=== PATIENT | male | born 1955 | race Caucasian/White ===

== ENCOUNTER 2018-10-06 08:09 | Day surgery (SDC) | payer BC, OTHER ==
[~2018-10-06] VITALS: Ht 198.1 cm; Wt 97.7 kg
[~2018-10-06 08:09] MED LIST: MAGN400T7 PO
[2018-10-06 08:57] VITALS: BP 119/82
[2018-10-06] MEDS ORDERED: CHLORHEXIDINE 15 ML UDC ONE (09:23)
[2018-10-06] MEDS ORDERED: CIPROFLOXACIN/PMX 400MG/200ML 200 ML ONE (09:28)
[2018-10-06] MEDS ORDERED: ONDANSETRON 2MG/ML, 2ML IV PRN (09:30)
[2018-10-06] MEDS ORDERED: hydrALAzine 20 MG/ML, 1ML IV PRN (09:30)
[2018-10-06] MEDS ORDERED: METOPROLOL 1 MG/ML, 5ML IV PRN (09:30)
[2018-10-06] MEDS ORDERED: FENTANYL PF 100 MCG/2ML IV PRN (09:30)
[2018-10-06] MEDS ORDERED: LABETALOL 5MG/ML, 20ML IV PRN (09:30)
[2018-10-06] MEDS ORDERED: PROPOFOL 10 MG/ML, 20ML ONE (09:46)
== END 2018-10-06 11:40 | disposition home or self-care (01) ==
LOC: OUT 08:09
PROVIDERS: ATTEND Internal Medicine Gastroenterology
DX: K29.50 Unspecified chronic gastritis without bleeding (principal); K31.7 Polyp of stomach and duodenum; K86.2 Cyst of pancreas
CPT/HCPCS: 43242; 43251; 88305; 93005; J0744; J2704

== ENCOUNTER 2021-02-14 09:52 | Day surgery (SDC) | payer OTHER ==
[~2021-02-14] VITALS: Ht 198.1 cm; Wt 100.4 kg
[~2021-02-14 09:52] MED LIST changes: -MAGN400T7 PO; +MAGN400T9 PO
[2021-02-14] MEDS ORDERED: CHLORHEXIDINE 15 ML UDC PO ONE (11:00)
[2021-02-14] MEDS ORDERED: LACTATED RINGERS 1,000 ML IV SCH (11:00)
[2021-02-14] MEDS ORDERED: PLEASE ENTER ALLERGIES MC SCH (11:00)
[2021-02-14 11:18] VITALS: BP 129/83
[2021-02-14] MEDS ORDERED: NONE PER PT (11:24)
[2021-02-14] MEDS ORDERED: PIPERACILLIN/TAZO 3.375 GM in DEXTROSE 5% 50 ML IVPB ONE ×2 (11:30→11:32)
[2021-02-14] MEDS ORDERED: PROPOFOL 10 MG/ML, 100ML IV ONE (11:43)
[2021-02-14] MEDS ORDERED: FENTANYL PF 100 MCG/2ML ONE (11:49)
[2021-02-14] MEDS ORDERED: LABETALOL 5MG/ML, 20ML IV PRN (12:00)
[2021-02-14] MEDS ORDERED: DIAZEPAM 5 MG/ML, 2ML IVPush PRN (12:00)
[2021-02-14] MEDS ORDERED: PROMETHAZINE 25 MG/ML, 1ML IVPush PRN (12:00)
[2021-02-14] MEDS ORDERED: FENTANYL PF 100 MCG/2ML IV PRN (12:00)
[2021-02-14] MEDS ORDERED: OXYcodone 5 MG/5 ML ORAL.SOL UDC PO PRN (12:00)
[2021-02-14] MEDS ORDERED: HALOPERIDOL 5 MG/ML IV PRN (12:00)
[2021-02-14] MEDS ORDERED: DIPHENHYDRAMINE 50 MG/ML, 1ML IVPush PRN (12:00)
[2021-02-14] MEDS ORDERED: hydrALAzine 20 MG/ML, 1ML IV PRN (12:00)
[2021-02-14] MEDS ORDERED: ONDANSETRON 2MG/ML, 2ML IVPush PRN (12:00)
[2021-02-14] MEDS ORDERED: ACETAMINOPHEN 325 MG TABLET PO PRN (12:00)
[2021-02-14] MEDS ORDERED: METOCLOPRAMIDE 5 MG/ML, 2ML IVPush PRN (12:00)
[2021-02-14] MEDS ORDERED: MEPERIDINE/PF 25MG/0.5ML IVPush PRN (12:00)
[2021-02-14] MEDS ORDERED: METOPROLOL 1 MG/ML, 5ML IV PRN (12:00)
[2021-02-14] MEDS ORDERED: HYDROmorphone 1 MG/ML, 1ML INJ IVPush PRN (12:00)
[2021-02-14] MEDS ORDERED: EPHEDRINE 50 MG/ML, 1ML IVPush PRN (12:00)
== END 2021-02-14 13:40 | disposition home or self-care (01) ==
LOC: OUT 09:52
PROVIDERS: ATTEND Internal Medicine Gastroenterology
DX: K86.2 Cyst of pancreas (principal); K29.50 Unspecified chronic gastritis without bleeding; K31.7 Polyp of stomach and duodenum; K57.10 Diverticulosis of small intestine without perforation or abscess without bleeding; Z20.822 Contact with and (suspected) exposure to COVID-19; Z79.899 Other long term (current) drug therapy
CPT/HCPCS: 43239; 43242; 87635; 88305; 93005; J2543; J2704; J3010; J7120